=== PATIENT | female | born 1985 | race Caucasian/White ===

== ENCOUNTER 2017-11-07 21:34 | Emergency (ER) | payer SELFPAY ==
[~2017-11-07] VITALS: Ht 165.1 cm; Wt 75.5 kg
[~2017-11-07 21:34] MED LIST: DICL25 PO; HYDR-3129 PO; XANA1TAB6 PO
[2017-11-07 21:50] VITALS: BP 121/65; PULSE 113; RESP 18; TEMP 101.3; O2SAT 98
[2017-11-07] MEDS ORDERED: XANA1TAB2 PO (22:07)
[2017-11-07] MEDS ORDERED: DEXT1TAB18 PO (22:07)
[2017-11-07] MEDS ORDERED: HYDR-3366 PO (22:07)
--- NOTE | 2017-11-07 22:15 | PD ---
HPI Chief Complaint: Cold / Flu Symptoms Time Seen by Provider: 22:10 Travel History International Travel<30 days: No Contact w/Intl Traveler<30days: No Traveled to known affect area: No History of Present Illness HPI The patient is a 32-year-old female that complains of cough productive of yellow sputum, chills, fever, nasal congestion, mild sore throat since yesterday. She states there is no possibility of , she is not sexually active with men. She denies any ear pain. She has some minimal sharp , pleuritic chest pain on the anterior chest wall which is easily reproducible by pressing on the area. PFSH Past Medical History Arthritis: No Anxiety: Yes Depression: No Heart Rhythm Problems: Yes (IRREGULAR HEART BEAT) Cancer: No Cardiovascular Problems: Yes (HALTER MONITOR RATE INCREASED 158 URAY 2010) High Cholesterol: No Chest Pain: No Congestive Heart Failure: No Cerebrovascular Accident: No Endocrine: No Gastrointestinal Disorders: Yes Genitourinary: No Headaches: Yes Hypertension: No Immune Disorder: No Implanted Vascular Access Dvce: No Musculoskeletal: Yes (BROKEN TIBIA R SIDE THIS ADMISSION) Neurologic: Yes (EEG ABNORMAL MONTH AGO) Psychiatric: Yes Reproductive: Yes (BIG CLOTS WITH MONTHLY PERIOD) Respiratory: No Migraines: No Seizures: Yes (MINI SEIZURE JUNE 2010) Influenza Vaccination: No ?: Not LMP: 2-18 : 0 Past Surgical History Other Surgery: No Social History Alcohol Use: Yes ("A BEER EVERY ONCE IN AWHILE") Tobacco Use: No (QUIT 2012) Substance Use: No Allergies-Medications (Allergen,Severity, Reaction): Coded Allergies: No Known Allergies (Verified Adverse Reaction, Unknown, 11/07/17) Reported Meds & Prescriptions Reported Meds & Active Scripts Active Reported Mucinex DM Maximum Strength (Dextromethorphan-Guaifenesin ER 12 HR) 60-1,200 Mg Tab 1 Tab PO BID PRN Xanax (Alprazolam) 1 Mg Tab 1 Mg PO Q6H PRN [place] (Hydrocodone-Acetaminophen) 10-325 Mg Tab 1 Tab PO Q4H PRN Review of Systems Except as stated in HPI: all other systems reviewed are Neg Physical Exam Narrative GENERAL: The patient is alert, oriented 3 and no respiratory distress. Her vital signs show heart rate of 113 and temperature 11.3 but are otherwise normal. SKIN: Focused skin assessment warm/dry. HEAD: Atraumatic. Normocephalic. EYES: Pupils equal and round. No scleral icterus. No injection or drainage. ENT: No nasal bleeding or discharge. Mucous membranes pink and moist. The tympanic membranes are clear but the throat shows slight erythema without exudate or abscess. NECK: Trachea midline. No JVD. CARDIOVASCULAR: Regular rate and rhythm. No murmur appreciated. RESPIRATORY: No accessory muscle use. Clear to auscultation. Breath sounds equal bilaterally. GASTROINTESTINAL: Abdomen soft, non-tender, nondistended. Hepatic and splenic margins not palpable. MUSCULOSKELETAL: No obvious deformities. No clubbing. No cyanosis. No edema. NEUROLOGICAL: Awake and alert. No obvious cranial nerve deficits. Motor grossly within normal limits. Normal speech. PSYCHIATRIC: Appropriate mood and affect; insight and judgment normal. Data Data Last Documented VS Vital Signs Date Time Temp Pulse Resp B/P (MAP) Pulse Ox O2 Delivery O2 Flow Rate FiO2 11/07/17 22:48 102.8 11/07/17 22:07 20 100 Room Air 11/07/17 21:50 113 121/65 (83) Orders Orders Group A Rapid Strep Screen (11/07/17 22:15) Influenzae A/B Antigen (11/07/17 22:15) Strep Culture (Group A) (11/07/17 22:20) Acetaminophen (Tylenol) (11/07/17 23:15) MDM Medical Decision Making Medical Screen Exam Complete: Yes Emergency Medical Condition: Yes Medical Record Reviewed: Yes Interpretation(s) The influenza A/B antigen is negative for flu a and flu B antigen. The strep screen is negative for group A strep antigen. Differential Diagnosis Flu syndrome, nonspecific viral syndrome, strep pharyngitis, viral pharyngitis Narrative Course The patient appears to have a viral syndrome. She needs to follow-up with her primary care physician this week. She needs to return to the emergency room for reevaluation if she develops signs and symptoms of pneumonia like shortness of breath or chest pain on one side or the other. 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 Diagnosis Primary Impression: Viral syndrome Additional Instructions: Rest, increase liquids, Tylenol and Motrin are highly fight a virus. If you get worse he may need return to emergency department for evaluation for pneumonia. Otherwise, follow-up this week with your primary care physician. Med/Other Pt SpecificInfo: No Change to Meds Disposition: 01 DISCHARGE HOME Condition: Stable Joey Kevin MD Nov 07, 2017 22:15
[2017-11-07 22:48] VITALS: TEMP 102.8
[2017-11-07] MEDS ORDERED: ACETAMINOPHEN 325 MG TAB PO ONE (23:15)
--- NOTE | 2017-11-07 23:46 | RADRPT ---
EXAM DATE/TIME: 11/07/2017 23:25 [facility] COMPARISON: CHEST PA & LAT, March 11, 2015, 4:01. INDICATIONS : Fever. Cough. Congestion. MEDICAL HISTORY : None. SURGICAL HISTORY : None. ENCOUNTER: Initial ACUITY: 3 days PAIN SCORE: 7/10 LOCATION: Bilateral chest FINDINGS: PA and lateral views of the chest demonstrate the lungs to be symmetrically aerated without evidence of mass, infiltrate or effusion. The cardiomediastinal contours are unremarkable. Osseous structure s are intact. CONCLUSION: No acute disease. There is no evidence of pneumonia. Adolfo French MD on November 07, 2017 at 23:43 Board Certified Radiologist. This report was verified electronically.
[2017-11-08 00:07] VITALS: BP 124/68; PULSE 87; RESP 16; TEMP 100.6; O2SAT 99
== END 2017-11-08 00:20 | disposition home or self-care (01) ==
LOC: PHED 21:34
DX: B34.9 Viral infection, unspecified (principal); F41.9 Anxiety disorder, unspecified; R56.9 Unspecified convulsions; Z87.891 Personal history of nicotine dependence
CPT/HCPCS: 71046; 87081; 87804; 87880; 99284